=== PATIENT | female | born 2000 | race Caucasian/White ===

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

== ENCOUNTER 2021-01-20 13:27 | Observation (INO) ==
[2021-01-20 14:35] LABS: Basophils # 0.1 K/mcL (0.0-0.2); Basophils % 0.4 %; Eosinophils # 0.1 K/mcL (0.0-0.6); Eosinophils % 0.8 %; Hematocrit 42.3 % (35.3-44.9); Hemoglobin 13.8 g/dL (11.5-15.4); Immature Granulocytes % 0.4 % (0-4); Lymphocytes # 2.6 K/mcL (0.6-4.6); Lymphocytes % 22.8 %; Mean Corpuscular HGB Conc 32.6 g/dL (31.6-35.5); Mean Corpuscular Hemoglobin 28.8 pg (28.0-33.3); Mean Corpuscular Volume 88.1 fL (83.0-100.0); Mean Platelet Volume 10.2 fL (9.4-12.4); Monocytes # 0.6 K/mcL (0.0-1.3); Monocytes % 5.1 %; Platelet Count 319 K/mcL (140-400); Red Cell Distribution Width 12.4 % (11.5-14.5); Segmented Neutrophils % 70.5 %; White Blood Count 11.3 K/mcL (4.3-11.1)
[2021-01-20 14:50] LABS: Alanine Aminotransferase 6 Units/L (7-52); Albumin 4.4 g/dL (3.5-5.7); Albumin/Globulin Ratio 1.6 (1.1-2.2); Alkaline Phosphatase 65 Units/L (34-104); Aspartate Amino Transferase 11 Units/L (13-39); BUN/Creatinine Ratio 15 (6-26); Bilirubin,Indirect 0.3 mg/dL (0.0-1.0); Bilirubin,Total 0.3 mg/dL (0.3-1.0); Blood Urea Nitrogen 11 mg/dL (6-20); Calcium 9.4 mg/dL (8.6-10.3); Carbon Dioxide 24 mEq/L (23-29); Chloride 105 mEq/L (98-107); Globulin 2.8 g/dL (2.4-3.5); Glucose 95 mg/dL (70-105); Osmolality,Calculated 283 (280-300); Potassium 3.7 mEq/L (3.5-5.1); Sodium 137 mEq/L (136-145); Total Protein 7.2 g/dL (6.4-8.9); eGFR For African Americans > 60 (> 60); eGFR For Non-African Americans > 60 (> 60)
[2021-01-20 14:55] LABS: INR 1.1; Prothrombin Time 12.3 Seconds (9.4-12.1)
[2021-01-20 14:57] LABS: Activated Partial Thrombo Time 33.7 Seconds (26.0-36.0)
[2021-01-20] MEDS ORDERED: ceFAZolin 2,000 MG in 0.9 % Sodium Chloride 100 ML IVPB ONE (17:58)
[2021-01-20] MEDS ORDERED: *HR* Midazolam HCl 2 MG/2 ML VIAL ONE (18:15)
[2021-01-20] MEDS ORDERED: Lidocaine -MPF 2% 2 ML VIAL ONE (18:15)
[2021-01-20] MEDS ORDERED: *HR* Propofol 200 MG/20 ML VIAL IVP ONE (18:15)
[2021-01-20] MEDS ORDERED: Ondansetron 4 MG/2 ML VIAL ONE (18:15)
[2021-01-20] MEDS ORDERED: *HR* FentaNYL (PF) 100 MCG/2 ML VIAL ONE (18:15)
[2021-01-20] MEDS ORDERED: Ondansetron 4 MG/2 ML VIAL IVP PRN (18:18)
[2021-01-20] MEDS ORDERED: *HR* Meperidine 25 MG/ML SYRINGE IVP PRN (18:18)
[2021-01-20] MEDS ORDERED: Ibuprofen 400 MG TABLET PO PRN (18:47)
[2021-01-20] MEDS: *HR* HYDROmorphone PF 0.5 MG/0.5 ML SYRINGE IVP PRN ×4 (19:00→19:22)
[2021-01-20 19:54] VITALS: TEMP 97.5
[2021-01-20] MEDS ORDERED: hydrOXYzine pamoate 25 MG CAPSULE PO ONE (20:02)
[2021-01-20 20:44] VITALS: BP 110/75; PULSE 71; O2SAT 94
== END 2021-01-20 20:40 | disposition home or self-care (01) ==
LOC: 1NENUOBS 13:27 → EMEROOARM 13:27 → 1NENUOBS 18:47
PROVIDERS: ADMIT Obstetrics & Gynecology; ATTEND Obstetrics & Gynecology

== ENCOUNTER → 2021-04-07 12:10 | Observation (INO) ==
[2021-04-07 11:37] VITALS: O2SAT 99
[2021-04-07 11:39] VITALS: BP 109/69; PULSE 70; TEMP 97.8
[~2021-04-07 12:10] MED LIST changes: -*HR* Morphine 10 MG/ML VIAL SQ ONE; +Ibuprofen 400 MG TABLET PO PRN; -Mag Hydrox/Al Hydrox/Simeth 30 ML UDC PO ONE; +Methylergonovine 0.2 MG/ML AMPUL IM ONE; +Ringers Solution, Lactated 1,000 ML IVC SCH; +Ringers Solution, Lactated 1,000 ML ONE; +ceFAZolin 2,000 MG in 0.9 % Sodium Chloride 100 ML IVPB ONE
== END | disposition home or self-care (01) ==
LOC: 1NENULAB
PROVIDERS: ADMIT Obstetrics & Gynecology; ATTEND Obstetrics & Gynecology

== ENCOUNTER → 2021-12-12 04:00 | Observation (INO) ==
[2021-12-11 17:43] LABS: Amorphous Sediment,Urine Few per hpf (None-Few); Bacteria,Urine Few per hpf (None-Few); Bilirubin,Urine Negative (Negative); Blood,Urine Negative (Negative); Clarity,Urine Ex.Turbid (Clear); Color,Urine Yellow (Yellow); Glucose,Urine (UA) Normal (Normal); Ketones,Urine Negative (Negative); Leukocyte Esterase,Urine Negative (Negative); Mucus,Urine Few per lpf (None-Few); Nitrite,Urine Negative (Negative); Protein,Urine 30 mg/dL (Neg-Trace); Specific Gravity,Urine 1.021 (1.010-1.025); Squamous Epithelial Cell,Urine Moderate per hpf (None-Few); Transitional Epi Cells,Urine Few per hpf (None-Few); Urobilinogen,Urine Normal (Normal); WBC,Urine 0-3 per hpf (0-3)
[2021-12-11 18:25] LABS: Basophils % 0.2 %; Eosinophils # 0.1 K/mcL (0.0-0.6); Eosinophils % 1.1 %; Hematocrit 30.7 % (35.3-44.9); Hemoglobin 9.9 g/dL (11.5-15.4); Immature Granulocytes % 0.6 % (0-4); Lymphocytes # 1.6 K/mcL (0.6-4.6); Lymphocytes % 14.7 %; Mean Corpuscular HGB Conc 32.2 g/dL (31.6-35.5); Mean Corpuscular Hemoglobin 27.3 pg (28.0-33.3); Mean Corpuscular Volume 84.8 fL (83.0-100.0); Mean Platelet Volume 10.8 fL (9.4-12.4); Monocytes # 0.6 K/mcL (0.0-1.3); Neutrophils # 8.8 K/mcL (1.6-8.9); Platelet Count 249 K/mcL (140-400); Red Blood Count 3.62 M/mcL (3.82-4.97); Red Cell Distribution Width 12.8 % (11.5-14.5); Segmented Neutrophils % 78.4 %; White Blood Count 11.2 K/mcL (4.3-11.1)
[2021-12-11] MEDS: *HR* HYDROmorphone (PF) 1 MG/ML SYRINGE IVP PRN (23:53)
[2021-12-12 00:06] LABS: BUN/Creatinine Ratio 10 (6-26); Blood Urea Nitrogen 6 mg/dL (6-20); Calcium 8.6 mg/dL (8.6-10.3); Carbon Dioxide 21 mEq/L (23-29); Chloride 105 mEq/L (98-107); Glucose 83 mg/dL (70-105); Osmolality,Calculated 277 (280-300); Potassium 3.6 mEq/L (3.5-5.1); Sodium 135 mEq/L (136-145); eGFR For African Americans > 60 (> 60); eGFR For Non-African Americans > 60 (> 60)
[2021-12-12] MEDS: *HR* HYDROmorphone (PF) 1 MG/ML SYRINGE IVP PRN (02:39)
[~2021-12-12 04:00] MED LIST changes: +*HR* HYDROmorphone (PF) 1 MG/ML SYRINGE IVP ONE; +*HR* HYDROmorphone (PF) 1 MG/ML SYRINGE IVP PRN; +*HR* HYDROmorphone 2 MG/ML SYRINGE IVP PRN; +*HR* OxyCODONE Immed Rel 5 MG TABLET PO PRN; -Ibuprofen 400 MG TABLET PO PRN; -Methylergonovine 0.2 MG/ML AMPUL IM ONE; +Ondansetron 4 MG/2 ML VIAL IVP PRN; +Ondansetron 4 MG/2 ML VIAL ONE; +Ringers Solution, Lactated 1,000 ML IVC ONE; -ceFAZolin 2,000 MG in 0.9 % Sodium Chloride 100 ML IVPB ONE
== END | disposition short-term general hospital (02) ==
LOC: 1NENULAB
PROVIDERS: ADMIT Advanced Practice Midwife; ATTEND Advanced Practice Midwife

== ENCOUNTER → 2021-12-20 21:30 | Observation (INO) ==
[2021-12-20 21:00] LABS: Bilirubin,Urine Negative (Negative); Blood,Urine Large (Negative); Clarity,Urine Ex.Turbid (Clear); Color,Urine Light-Orange (Yellow); Glucose,Urine (UA) Normal (Normal); Ketones,Urine Negative (Negative); Leukocyte Esterase,Urine Trace (Negative); Mucus,Urine Few per lpf (None-Few); Nitrite,Urine Negative (Negative); Protein,Urine 200 mg/dL (Neg-Trace); RBC,Urine TNTC per hpf (0-3); Specific Gravity,Urine > 1.030 (1.010-1.025); Squamous Epithelial Cell,Urine Moderate per hpf (None-Few); Urobilinogen,Urine Normal (Normal); WBC,Urine 15-30 per hpf (0-3)
== END | disposition home health service (06) ==
LOC: 1NENULAB
PROVIDERS: ADMIT Obstetrics & Gynecology; ATTEND Obstetrics & Gynecology

== ENCOUNTER → 2021-12-30 16:40 | Observation (INO) ==
[2021-12-30] MEDS: Ringers Solution, Lactated 1,000 ML IVC SCH ×2 (15:20→16:05)
[~2021-12-30 16:40] MED LIST changes: -*HR* HYDROmorphone (PF) 1 MG/ML SYRINGE IVP ONE; -*HR* HYDROmorphone (PF) 1 MG/ML SYRINGE IVP PRN; -*HR* HYDROmorphone 2 MG/ML SYRINGE IVP PRN; -*HR* OxyCODONE Immed Rel 5 MG TABLET PO PRN; +Morphine Sulfate 2 MG/ML SYRINGE IVP ONE; -Ondansetron 4 MG/2 ML VIAL IVP PRN; -Ondansetron 4 MG/2 ML VIAL ONE; -Ringers Solution, Lactated 1,000 ML IVC ONE; -Ringers Solution, Lactated 1,000 ML IVC SCH; -Ringers Solution, Lactated 1,000 ML ONE
== END | disposition short-term general hospital (02) ==
LOC: 1NENULAB
PROVIDERS: ADMIT Obstetrics & Gynecology; ATTEND Obstetrics & Gynecology

== ENCOUNTER 2022-02-21 05:56 | Inpatient (IN) ==
[2022-02-21] MEDS ORDERED: Flu Vac QV 22-23 (6MOS UP)/PF 0.5 ML SYRINGE IM ONE (06:22)
[2022-02-21] MEDS ORDERED: Naloxone 0.4 MG/ML INJ IVP PRN (06:23)
[2022-02-21] MEDS ORDERED: Lidocaine 1% 20 ML MDV INFILT PRN (06:23)
[2022-02-21] MEDS ORDERED: Ondansetron 4 MG/2 ML VIAL IVP PRN (06:23)
[2022-02-21] MEDS ORDERED: Azithromycin 500 MG in 0.9 % Sodium Chloride 250 ML IVPB PRN (06:23)
[2022-02-21] MEDS ORDERED: Metoclopramide 10 MG/2 ML VIAL IVP PRN (06:23)
[2022-02-21] MEDS ORDERED: *HR* FentaNYL (PF) 100 MCG/2 ML VIAL IVP PRN (06:23)
[2022-02-21] MEDS ORDERED: miSOPROStoL 25 MCG TABLET VG PRN (06:23)
[2022-02-21] MEDS ORDERED: Famotidine 20 MG/2 ML VIAL IVP PRN (06:23)
[2022-02-21] MEDS ORDERED: *HR* Nalbuphine 10 MG/ML AMPUL IV PRN (06:23)
[2022-02-21 06:49] LABS: Basophils % 0.2 %; Eosinophils # 0.1 K/mcL (0.0-0.6); Eosinophils % 1.1 %; Immature Granulocytes % 0.9 % (0-4); Lymphocytes # 1.9 K/mcL (0.6-4.6); Lymphocytes % 19.2 %; Mean Corpuscular HGB Conc 31.3 g/dL (31.6-35.5); Mean Corpuscular Hemoglobin 24.4 pg (28.0-33.3); Mean Corpuscular Volume 78.2 fL (83.0-100.0); Mean Platelet Volume 10.7 fL (9.4-12.4); Monocytes # 0.6 K/mcL (0.0-1.3); Monocytes % 5.5 %; Neutrophils # 7.4 K/mcL (1.6-8.9); Platelet Count 284 K/mcL (140-400); Red Blood Count 4.09 M/mcL (3.82-4.97); Red Cell Distribution Width 15.8 % (11.5-14.5); Segmented Neutrophils % 73.1 %; White Blood Count 10.1 K/mcL (4.3-11.1)
[2022-02-21] MEDS: Ringers Solution, Lactated 1,000 ML IVC SCH ×2 (07:47→12:23)
[2022-02-21 08:42] LABS: Amphetamine Screen,Urine Negative ng/mL (Cutoff=1000); Barbiturate Screen,Urine Negative ng/mL (Cutoff=200); Benzodiazepines Screen,Urine Negative ng/mL (Cutoff=200); Cannabinoid Screen,Urine Negative ng/mL (Cutoff = 50); Cocaine Screen,Urine Negative ng/mL (Cutoff= 300); Opiate Screen,Urine Negative ng/mL (Cutoff=300); Phencyclidine Screen,Urine Negative ng/mL (Cutoff=25)
[2022-02-21] MEDS ORDERED: Oxytocin 30 UNIT/503 ML BAG IVC SCH ×2 (11:15→22:25)
[2022-02-21] MEDS ORDERED: *HR* FentaNYL (PF) 100 MCG/2 ML VIAL EP ONE (11:47)
[2022-02-21] MEDS ORDERED: EPHEDrine sulfate 50 MG/10 ML VIAL IVP PRN (11:47)
[2022-02-21] MEDS ORDERED: Ropivacaine/PF 0.2% 20 ML VIAL EP ONE (11:47)
[2022-02-21] MEDS: Epidural Premix (fent/bupiv) 110 ML EP SCH ×2 (12:23→17:04)
[2022-02-21] MEDS ORDERED: Ropivacaine/PF 0.2% 20 ML VIAL ONE ×2 (13:44→16:51)
[2022-02-21] MEDS ORDERED: *HR* FentaNYL (PF) 100 MCG/2 ML VIAL ONE ×2 (13:44→16:51)
[2022-02-21] MEDS ORDERED: Lanolin 7 G OINT...G. TP PRN (22:25)
[2022-02-21] MEDS ORDERED: Ondansetron ODT 4 MG TAB.RAPDIS SL PRN (22:25)
[2022-02-21] MEDS: Ibuprofen 600 MG TABLET PO SCH (22:46)
[2022-02-21] MEDS: Benzocaine/Menthol 56 GM AEROSOL SPRAY TP PRN (22:47)
[2022-02-22] MEDS: Acetaminophen 325 MG TABLET PO SCH ×4 (03:07→23:51)
[2022-02-22] MEDS: Ibuprofen 600 MG TABLET PO SCH ×3 (06:07→23:51)
[2022-02-22 06:41] LABS: Basophils % 0.2 %; Eosinophils # 0.1 K/mcL (0.0-0.6); Eosinophils % 0.7 %; Hematocrit 32.8 % (35.3-44.9); Hemoglobin 10.4 g/dL (11.5-15.4); Immature Granulocytes % 0.5 % (0-4); Lymphocytes # 1.4 K/mcL (0.6-4.6); Lymphocytes % 11.9 %; Mean Corpuscular HGB Conc 31.7 g/dL (31.6-35.5); Mean Corpuscular Hemoglobin 24.6 pg (28.0-33.3); Mean Corpuscular Volume 77.5 fL (83.0-100.0); Mean Platelet Volume 10.8 fL (9.4-12.4); Monocytes # 0.7 K/mcL (0.0-1.3); Monocytes % 5.9 %; Neutrophils # 9.7 K/mcL (1.6-8.9); Platelet Count 285 K/mcL (140-400); Red Blood Count 4.23 M/mcL (3.82-4.97); Red Cell Distribution Width 15.7 % (11.5-14.5); Segmented Neutrophils % 80.8 %
[2022-02-22] MEDS: Prenatal Vit/FA 1 EACH TABLET PO SCH (08:16)
[2022-02-22 16:07] VITALS: O2SAT 98
[2022-02-22] MEDS: Benzocaine/Menthol 56 GM AEROSOL SPRAY TP PRN (18:34)
[2022-02-23] MEDS: Ibuprofen 600 MG TABLET PO SCH (06:11)
[2022-02-23] MEDS: Acetaminophen 325 MG TABLET PO SCH (06:11)
[2022-02-23 07:28] VITALS: BP 132/90; PULSE 70; TEMP 97.9
[2022-02-23] MEDS: Prenatal Vit/FA 1 EACH TABLET PO SCH (09:07)
== END 2022-02-23 09:40 | disposition home or self-care (01) | DRG 560 ==
LOC: 1NENULAB 05:56 → 1NENUOBS 22:24
PROVIDERS: ADMIT Obstetrics & Gynecology; ATTEND Obstetrics & Gynecology